=== PATIENT | male | born 1980 | race Two or more races ===

== ENCOUNTER 2024-02-16 09:20 | Outpatient (CLI) | payer OTHER ==
[~2024-02-16 09:20] MED LIST: CELEBREX200MG PO; INTESTINEX680 MG PO; METAXALONE800 MG PO; TOPROL XL50 M1
[2024-02-16] MEDS ORDERED: SYNTHROID112 MCG PO (11:20)
== END 2024-02-16 09:31 | disposition home or self-care (01) ==
LOC: TOM 09:20
PROVIDERS: ATTEND Internal Medicine Gastroenterology
DX: R10.32 Left lower quadrant pain (principal)

== ENCOUNTER 2024-02-16 11:13 | Inpatient (IN) | payer OTHER ==
[~2024-02-16] VITALS: Ht 177.8 cm; Wt 108.9 kg
[2024-02-16] MEDS ORDERED: SYNTHROID112 MCG PO (11:20)
[2024-02-16] MEDS ORDERED: 0.9 % SODIUM CHLORIDE 1,000 ML IV STA (11:53)
[2024-02-16] MEDS ORDERED: PIPERACILLIN/TAZOBACTAM SODIUM 3.375 GM VIAL IV ONE ×2 (12:00→12:17)
[2024-02-16] MEDS ORDERED: FAMOTIDINE/PF 20 MG in 0.9 % SODIUM CHLORIDE 100 ML IV SCH (12:19)
[2024-02-16] MEDS ORDERED: ACETAMINOPHEN 325 MG TABLET PO PRN (12:30)
[2024-02-16] MEDS ORDERED: 0.9 % SODIUM CHLORIDE 1,000 ML IV SCH ×2 (12:30→19:30)
[2024-02-16 12:31] LABS: HEMOGLOBIN 15.4 g/dL (13-16.00); MEAN CELL VOLUME 91.5 fL (80.0-100.00); MEAN CORPUSCULAR HEMOGLOBIN 31.3 pg (27.00-32.0); MEAN CORPUSCULAR HGB CONC 34.2 g/dl (32.0-36.0); PLATELET COUNT 182 K/uL (150-450); RED BLOOD COUNT 4.92 M/uL (4.00-6.00); RED CELL DISTRIBUTION WIDTH 14.2 % (11.5-14.5)
[2024-02-16] MEDS ORDERED: METOPROLOL TARTRATE 100 MG TABLET PO SCH (12:31)
[2024-02-16 12:35] LABS: PH,URINE 7.5 (5.0-8.0); URINE APPEARANCE Clear; URINE BILIRRUBIN Negative (NEGATIVE); URINE BLOOD Negative; URINE COLOR Yellow; URINE GLUCOSE Negative (NEGATIVE); URINE LEUKOCYTE Negative; URINE NITRATE Negative; URINE PROTEIN Negative (NEGATIVE); URINE UROBILINOGEN 0.2 E.U./dl
[2024-02-16 12:42] LABS: ABG PO2 73.6 mmHg (80-100); ABG pCO2 42.5 mmHg (35-45)
[2024-02-16 12:42] LABS: URINE BACTERIA 2.5 uL (0.0-1933); URINE EPITHELIAL CELLS 0.7 uL (0.0-38.8); URINE RBC 1.9 uL (0.0-20.8); URINE WBC 0.3 uL (0.0-23.2)
[2024-02-16] MEDS ORDERED: MORPHINE SULFATE 2 MG/ML CARTRIDGE IV PRN (12:45)
[2024-02-16 12:48] LABS: BASE EXCESS 0.8 mmol/l; BICARBONATE 25.8 mmol/l (23-25); SaO2 94.6 %; Tco2 27.1 mmol/l
[2024-02-16 12:51] LABS: allen test SATISFACTORY; o2 21 %; puncture site RADIAL RIGHT
[2024-02-16 12:53] LABS: INR 0.99; PARTIAL THROMBOPLASTIN TIME 26.5 SECONDS (22.0-34.0); PROTHROMBIN TIME 10.4 SECONDS (9.0-11.5)
[2024-02-16 12:57] LABS: CREATININE SERUM 0.84 mg/dL (0.70-1.30); GFR 98.81; POTASSIUM 3.99 mEq/L (3.5-5.1)
[2024-02-16] MEDS ORDERED: FAMOtidine 200mg/20ml VIAL ONE (13:24)
[2024-02-16 14:20] LABS: MAGNESIUM 2.2 mg/dL (1.8-2.4)
[2024-02-16 14:24] LABS: C-REACTIVE PROTEIN 0.39 MG/DL (0.00-0.29)
[2024-02-16] MEDS ORDERED: PIPERACILLIN/TAZOBACTAM SODIUM 3.375 GM in 0.9 % SODIUM CHLORIDE 100 ML IV SCH (18:00)
[2024-02-16] MEDS ORDERED: KETOROLAC TROMETHAMINE 30 MG VIAL IV PRN (18:00)
[2024-02-16] MEDS ORDERED: ENALAPRILAT DIHYDRATE 1.25 MG/ML VIAL IV PRN (19:00)
[2024-02-16] MEDS ORDERED: ENOXAPARIN SODIUM 40 MG/0.4 ML SYRINGE SUBCUTANEO ONE (19:15)
[2024-02-16] MEDS ORDERED: SUGAMMADEX SODIUM 200 MG/2 ML VIAL IV ONE (19:15)
[2024-02-17] MEDS ORDERED: LEVOTHYROXINE SODIUM 112 MCG TABLET PO SCH (06:00)
[2024-02-17 06:36] LABS: HEMATOCRIT 41.4 % (39.0-48.0); HEMOGLOBIN 14.3 g/dL (13-16.00); MEAN CELL VOLUME 91.5 fL (80.0-100.00); MEAN CORPUSCULAR HEMOGLOBIN 31.5 pg (27.00-32.0); MEAN CORPUSCULAR HGB CONC 34.4 g/dl (32.0-36.0); PLATELET COUNT 191 K/uL (150-450); RED BLOOD COUNT 4.53 M/uL (4.00-6.00); RED CELL DISTRIBUTION WIDTH 14.2 % (11.5-14.5)
[2024-02-17 07:14] LABS: CALCIUM 7.8 mg/dL (8.5-10.1); CREATININE SERUM 0.69 mg/dL (0.70-1.30); GFR 123.99; POTASSIUM 4.01 mEq/L (3.5-5.1)
== END 2024-02-17 14:02 | disposition home or self-care (01) | DRG 399 ==
LOC: ER 11:13 → SURH 13:09
PROVIDERS: Emergency Medicine; General Practice; Surgery; ADMIT Internal Medicine; ATTEND Internal Medicine
PROC: 0WQF4ZZ Repair Abdominal Wall, Percutaneous Endoscopic Approach (ICD-10-PCS; 2024-02-16)
PROC: 0DTJ4ZZ Resection of Appendix, Percutaneous Endoscopic Approach (ICD-10-PCS; principal; 2024-02-16 17:00)
DX: K35.890 Other acute appendicitis without perforation or gangrene (principal); K43.9 Ventral hernia without obstruction or gangrene; Z20.822 Contact with and (suspected) exposure to COVID-19; I10 Essential (primary) hypertension